=== PATIENT | male | born 2000 | race Caucasian/White ===

== ENCOUNTER 2022-03-11 14:40 | Observation (INO) ==
[2022-03-11 16:37] LABS: Basophils # (auto) 0.03 K/uL (0-0.2); Basophils % (auto) 0.2 %; Eosinophils # (auto) 0.05 K/uL (0-0.50); Eosinophils % (auto) 0.4 %; Hemoglobin 14.4 g/dl (14.0-18.0); Immature Granulocytes # (auto) 0.05 K/uL (0.00-0.02); Immature Granulocytes % (auto) 0.4 %; Lymphocytes # (auto) 1.01 K/uL (1.2-3.4); Lymphocytes % (auto) 7.4 %; Mean Corpuscular Hemoglobin 29.7 pg (25.0-34.0); Mean Corpuscular Hgb Conc 35.1 g/dL (32.0-36.0); Mean Corpuscular Volume 84.5 fL (80.0-100.0); Mean Platelet Volume 10.1 fL (9.4-12.4); Monocytes % (auto) 8.8 %; Neutrophils # (auto) 11.22 K/uL (1.4-6.5); Neutrophils % (auto) 82.8 %; Platelet Count 205 K/uL (130-400); RDW Coefficient of Variation 12.4 % (11.5-14.5); Red Blood Count 4.85 M/uL (4.63-6.08); White Blood Count 13.56 K/ul (4.8-10.8)
[2022-03-11 16:44] LABS: Appearance Urine Clear (Clear); Bacteria Urine Automated Negative (Negative); Bilirubin Urine Negative (Negative); Blood Urine Trace (Negative); Cast Urine Automated 0 /lpf (0-5); Color Urine Yellow; Epithelial Cell Urine Auto 0-5 /lpf (0-5); Glucose Urine UA Negative (Negative); Ketones Urine Negative (Negative); Leukocyte Esterase Urine Negative (Negative); Nitrite Urine Negative (Negative); Protein Urine Negative (Negative); RBC Urine Automated 0-4 /hpf (0-4); Specific Gravity Urine 1.011 (1.000-1.030); Urobilinogen Urine Negative (Negative); WBC Urine Automated 0 /hpf (0-5)
[2022-03-11 17:03] LABS: Albumin Globulin Ratio 1.7 (0.9-2); BUN Creatinine Ratio 10.2 (10-20); Bilirubin,Total 0.9 mg/dl (0.2-1.0); Calcium 10.4 mg/dl (8.5-10.1); Creatinine Clr Calc Pharmacy 93.7 ml/min; Est GFR (African American) 128.1 ml/min; Est GFR (Non-African American) 110.5 ml/min; Globulin 2.9 gm/dl (2.5-4.0); Potassium 3.8 mmol/L (3.5-5.1); Total Protein 7.9 gm/dl (6.0-8.3)
[2022-03-11] MEDS ORDERED: SODIUM CHLORIDE 0.9% 1000ML 1,000 ML IV ONE (19:03)
--- NOTE | 2022-03-11 19:05 | Emergency Department Note ---
Impression & Plan Acute appendicitis, Right lower quadrant abdominal pain ED Provider Note INFORMANT: Patient ED PROVIDER(S): David Buckner MD CHIEF COMPLAINT: Abdominal pain PLAN: Disposition: Admitted Condition: Good Outpatient prescription management: none Referral: None MEDICAL DECISION MAKING: Patient presented because of right lower quadrant abdominal pain. He declined analgesia. Patient was hydrated. Patient underwent CT imaging as he had a leukocytosis on CBC. Chemistry panel was unremarkable. CT imaging was concerning for acute appendicitis. Patient was given IV Mefoxin. Consultation was made with Dr. Foley of general surgery. Patient was admitted to the operative suite for intervention regarding his acute appendicitis. Triage Nursing notes reviewed and agree them. Vital Signs: reviewed and remarkable for no significant abnormalities Differential diagnosis: Appendicitis, testicular torsion, infections, diverticulitis, UTI, obstruction, mesenteric ischemia, aortic pathology, inflammatory bowel disease, renal colic, PUD, pancreatitis, biliary pathology, hernia, volvulus, constipation, as well as other pathologies. Diagnostics interpreted by me: ECG: none Cardiac Monitoring: none Imaging studies: CT scan as noted below HPI: The patient is a 21 year old male who presents to the Emergency Room with complaints of RLQ abd pain. This started last night and is worsening. The patient also notes the following associated symptoms, nausea, poor appetite. Worse with movement. The patient has found no relieving factors. Current pain is rated as 6/10. Pt denies LOC, headache, fevers, chills, diaphoresis, visual changes, neck pain, chest pain, breathing difficulties, back pain, melena, hematochezia, urinary symptoms, numbness, weakness, lymphadenopathy, rash, or other complaints. ROS: See above HPI for pertinent positives & negatives. A total of 10 systems reviewed and were otherwise negative. PAST MEDICAL HISTORY:See Below , [facility] PAST SURGICAL HISTORY:See Below,[facility] FAMILY HISTORY:See Below SOCIAL HISTORY:See Below, [employer] student HOME MEDICATIONS:See Below ALLERGIES:See Below VITALS:See Below PHYSICAL EXAMINATION: GENERAL: Awake, alert, uncomfortable-appearing, in no distress HENT: Normocephalic, atraumatic. Oropharynx unremarkable. EYES: Normal conjunctiva. Sclera non-icteric. NECK: Inspection normal. Non-tender. Supple. No nuchal rigidity. FROM. No masses. RESPIRATORY: Clear to auscultation. No wheezes. No rales. Normal respiratory effort. CARDIAC: Tachy rate. Normal rhythm. No murmurs. No rubs. Extremities warm and well perfused. Pulses equal. No JVD. GI: Soft, non-distended. RLQ tenderness to palpation. Mild rebound and guarding. No masses. RECTAL: Deferred. MUSCULOSKELETAL: Atraumatic. Chest examination reveals no tenderness. The back is symmetrical on inspection without obvious abnormality. There is no CVA tenderness to palpation. No joint edema. LOWER EXTREMITIES: Calves are equal size bilaterally and non-tender. No edema. No discoloration. NEURO: Normal sensorium. No sensory or motor deficits noted. SKIN: No rash or jaundice noted. David Buckner MD Past Med/Surg History Medical History No significant past medical history Social History Smoking Status: Never smoker Hx Alcohol Use: Yes Alcohol type: beer Hx Substance Use: No Preferred Language: Yi Communication Ability: Effective Cartridge Feeder Required: No Current Living Situation: Other Current Living Situation Comment: Patient reports living in a house with other [employer] students Other Information That Helps Us Care for You: No Feels Safe at Home: Yes Safety Concerns: Feels Safe At This Time Assistive Devices: None Allergies Allergies Allergy/AdvReac Type Severity Reaction Status Date / Time No Known Allergies Allergy Verified 03/11/22 20:43 Home Meds Home Medications Medication Instructions Recorded Confirmed ibuprofen 200 mg tablet (Advil) 400 mg PO Q6H PRN Pain 09/27/20 03/11/22 Results & Data (ED) Vital Signs Vital Signs - 24 hr 03/11/22 15:08 03/11/22 19:13 03/11/22 20:41 Temperature 37.3 C Temperature Source Oral Pulse Rate 102 H 98 H Pulse Rate [Right Finger] 68 Pulse Rhythm Regular Pulse Strength Normal Respiratory Rate 20 16 19 Respiratory Effort / Characteristics Non-Labored Spontaneous Respiratory Depth Normal Respiratory Pattern Regular Blood Pressure 115/67 147/76 H Blood Pressure [Right Arm] 148/79 H Blood Pressure Mean 83 Blood Pressure Mean [Right Arm] 102 Blood Pressure Position Sitting Pulse Oximetry 96 98 99 Oxygen Delivery Method Room Air Room Air Room Air Sepsis Recent Fever Within 48 Hours No Sepsis New/Unexplained Change in Mental Status N/A Sepsis Action Taken by Nursing No Action Required Laboratory Data Result diagrams: 03/11/22 16:20 03/11/22 16:20 Lab Results 03/11/22 03/11/22 03/11/22 Range/Units 16:20 16:20 16:25 WBC 13.56 H (4.8-10.8) K/ul RBC 4.85 (4.63-6.08) M/uL Hgb 14.4 (14.0-18.0) g/dl Hct 41.0 (40.1-51.0) % MCV 84.5 (80.0-100.0) fL MCH 29.7 (25.0-34.0) pg MCHC 35.1 (32.0-36.0) g/dL RDW Std Deviation 38.0 (36.4-46.3) fL RDW Coeff of Belkys 12.4 (11.5-14.5) % Plt Count 205 (130-400) K/uL MPV 10.1 (9.4-12.4) fL Immature Gran % (Auto) 0.4 % Neut % (Auto) 82.8 % Lymph % (Auto) 7.4 % [place] % (Auto) 8.8 % Eos % (Auto) 0.4 % Baso % (Auto) 0.2 % Neut # (Auto) 11.22 H (1.4-6.5) K/uL Lymph # (Auto) 1.01 L (1.2-3.4) K/uL [place] # (Auto) 1.20 H (0.24-0.82) K/uL Eos # (Auto) 0.05 (0-0.50) K/uL Baso # (Auto) 0.03 (0-0.2) K/uL Immature Gran # (Auto) 0.05 H (0.00-0.02) K/uL Sodium 136 (136-145) mmol/L Potassium 3.8 (3.5-5.1) mmol/L Chloride 98 (98-107) mmol/L Carbon Dioxide 31 (21-32) mmol/L Anion Gap 7 (3-11) BUN 10 (6-23) mg/dl Creatinine 0.98 (0.6-1.4) mg/dl Est Cr Clr Drug Dosing 93.7 ml/min Est GFR ( Amer) 128.1 ml/min Est GFR (Non-Af Amer) 110.5 ml/min BUN/Creatinine Ratio 10.2 (10-20) Glucose 126 H (70-99(Fasting)) mg/dl Calcium 10.4 H (8.5-10.1) mg/dl Total Bilirubin 0.9 (0.2-1.0) mg/dl AST 18 (13-39) U/L ALT 11 (7-52) U/L Alkaline Phosphatase 73 (34-104) U/L Total Protein 7.9 (6.0-8.3) gm/dl Albumin 5.0 (3.4-5.0) gm/dl Globulin 2.9 (2.5-4.0) gm/dl Albumin/Globulin Ratio 1.7 (0.9-2) Lipase 13 (11-82) U/L Urine Color Yellow Urine Appearance Clear (Clear) Urine pH 7.0 (4.5-7.5) Ur Specific [place] 1.011 (1.000-1.030) Urine Protein Negative (Negative) Urine Glucose (UA) Negative (Negative) Urine Ketones Negative (Negative) Urine Blood Trace H (Negative) Urine Nitrite Negative (Negative) Urine Bilirubin Negative (Negative) Urine Urobilinogen Negative (Negative) Ur Leukocyte Esterase Negative (Negative) Urine WBC (Auto) 0 (0-5) /hpf Urine RBC (Auto) 0-4 (0-4) /hpf U Hyaline Cast (Auto) 0 (0-5) /lpf U Epithel Cells (Auto) 0-5 (0-5) /lpf Urine Bacteria (Auto) Negative (Negative) SARS-CoV-2 (PCR) (Negative) 03/11/22 Range/Units 19:08 WBC (4.8-10.8) K/ul RBC (4.63-6.08) M/uL Hgb (14.0-18.0) g/dl Hct (40.1-51.0) % MCV (80.0-100.0) fL MCH (25.0-34.0) pg MCHC (32.0-36.0) g/dL RDW Std Deviation (36.4-46.3) fL RDW Coeff of Belkys (11.5-14.5) % Plt Count (130-400) K/uL MPV (9.4-12.4) fL Immature Gran % (Auto) % Neut % (Auto) % Lymph % (Auto) % [place] % (Auto) % Eos % (Auto) % Baso % (Auto) % Neut # (Auto) (1.4-6.5) K/uL Lymph # (Auto) (1.2-3.4) K/uL [place] # (Auto) (0.24-0.82) K/uL Eos # (Auto) (0-0.50) K/uL Baso # (Auto) (0-0.2) K/uL Immature Gran # (Auto) (0.00-0.02) K/uL Sodium (136-145) mmol/L Potassium (3.5-5.1) mmol/L Chloride (98-107) mmol/L Carbon Dioxide (21-32) mmol/L Anion Gap (3-11) BUN (6-23) mg/dl Creatinine (0.6-1.4) mg/dl Est Cr Clr Drug Dosing ml/min Est GFR ( Amer) ml/min Est GFR (Non-Af Amer) ml/min BUN/Creatinine Ratio (10-20) Glucose (70-99(Fasting)) mg/dl Calcium (8.5-10.1) mg/dl Total Bilirubin (0.2-1.0) mg/dl AST (13-39) U/L ALT (7-52) U/L Alkaline Phosphatase (34-104) U/L Total Protein (6.0-8.3) gm/dl Albumin (3.4-5.0) gm/dl Globulin (2.5-4.0) gm/dl Albumin/Globulin Ratio (0.9-2) Lipase (11-82) U/L Urine Color Urine Appearance (Clear) Urine pH (4.5-7.5) Ur Specific [place] (1.000-1.030) Urine Protein (Negative) Urine Glucose (UA) (Negative) Urine Ketones (Negative) Urine Blood (Negative) Urine Nitrite (Negative) Urine Bilirubin (Negative) Urine Urobilinogen (Negative) Ur Leukocyte Esterase (Negative) Urine WBC (Auto) (0-5) /hpf Urine RBC (Auto) (0-4) /hpf U Hyaline Cast (Auto) (0-5) /lpf U Epithel Cells (Auto) (0-5) /lpf Urine Bacteria (Auto) (Negative) SARS-CoV-2 (PCR) NEGATIVE (Negative) Administered Medications Acetaminophen (Acetaminophen 325 Mg Tab) 650 mg PO Q6H PRN PRN Reason: Pain & Pre PT Stop: 04/11/22 00:11 Last Admin: 03/12/22 00:46 Dose: 650 mg Documented By: SERGIO Cefoxitin Sodium 1,000 mg/ (Dextrose) 60 mls @ 100 mls/hr IV Q6H CRUZITO Stop: 03/22/22 03:59 Last Infusion: 03/12/22 03:45 Dose: 0 mls/hr Documented By: Admin: 03/12/22 03:00 Dose: 100 mls/hr Documented By: SERGIO Lactated Ringer's (Lr) 1,000 mls @ 100 mls/hr IV .Q10H CRUZITO Stop: 04/11/22 00:11 Last Admin: 03/12/22 00:48 Dose: 100 mls/hr Documented By: SERGIO Ketorolac Tromethamine (Ketorolac Tromethamine 15 Mg/Ml Vial) 15 mg IV Q6H PRN PRN Reason: Pain Stop: 03/17/22 02:44 Last Admin: 03/12/22 02:59 Dose: 15 mg Documented By: SERGIO Metoclopramide HCl (Metoclopramide Hcl Inj 5 Mg/Ml 2 Ml Vial) 10 mg IV Q6H PRN PRN Reason: Nausea Stop: 04/11/22 02:44 Last Admin: 03/12/22 03:00 Dose: 10 mg Documented By: SERGIO Ondansetron HCl (Ondansetron Inj 2 Mg/Ml 2 Ml Vial) 4 mg IV Q4H PRN PRN Reason: Nausea And Vomiting Stop: 04/11/22 00:11 Last Admin: 03/12/22 00:51 Dose: 4 mg Documented By: SERGIO Discontinued Medications Bupivacaine HCl (Bupivacaine 0.5 % 5 Mg/1 Ml Mpf 30ml Vial) Confirm Administered Dose 30 ml .ROUTE .STK-MED ONE Stop: 03/11/22 20:48 Last Admin: 03/11/22 22:00 Dose: 20 ml Documented By: CHRISTEN Sodium Chloride (Nss 1000ml) 1,000 mls @ 999 mls/hr IV .Q1H1M ONE Stop: 03/11/22 20:03 Last Infusion: 03/11/22 20:17 Dose: 0 mls/hr Documented By: Admin: 03/11/22 19:14 Dose: 999 mls/hr Documented By: LENKA Cefoxitin Sodium (Mefoxin) 2,000 mg in 60 mls @ 100 mls/hr IV NOW STA Stop: 03/11/22 20:50 Last Infusion: 03/12/22 00:15 Dose: 0 mls/hr Documented By: Admin: 03/11/22 21:30 Dose: 100 mls/hr Documented By: GARLAND Ioversol (Optiray 350 100ml) 87 ml IV ONCE ONE Stop: 03/11/22 19:25 Last Admin: 03/11/22 19:24 Dose: 87 ml Documented By: BRIDGETT Imaging Data Radiologist's Impression: Abdomen/Pelvis CT 03/11/22 15:[address] WITH IV AND ORAL CONTRAST CT DOSE: 257.02 mGy.cm HISTORY: RLQ abd pain. Nausea. Fever. TECHNIQUE: Multiaxial CT images of the abdomen and pelvis were performed following the use of intravenous and oral contrast. A dose lowering technique was utilized adhering to the principles of ALARA. COMPARISON STUDY: None. FINDINGS: The lung bases are clear. The no pneumoperitoneum. No pneumatosis. No fractures within the visualized osseous structures. The liver, gallbladder, pancreas, spleen, adrenal glands, and kidneys are unremarkable. No hydronephrosis. The main portal vein is patent. No retroperitoneal lymphadenopathy. Normal caliber abdominal aorta. The bladder is not well- distended which likely accounts for the apparent bladder wall thickening. No evidence for bowel obstruction. The distal appendix is thickened and there is periappendiceal fat stranding. The appendix measures up to 8 mm in diameter. Therefore, this is consistent with acute appendicitis. There is a 7 mm appendicolith within the mid appendix. No perforation or abscess identified at this time. IMPRESSION: Acute appendicitis with an associated 7 mm appendicolith. No perforation or abscess. ACT 112: Negative or not required by law. Electronically signed by: Diogo Chen M.D. 03/11/2022 7:55 PM Discharge Plan Visit Data Chief Complaint: Abdominal Pain Stated Complaint: ABDOMINAL PAIN ED Provider: David Buckner Discharge Problem: Acute appendicitis, Right lower quadrant abdominal pain Patient Disposition: Admitted As Inpatient Discharge Instructions Interventions: ED Discharge Assessment Last Done: 03/11/22 20:41
[2022-03-11] MEDS ORDERED: OPTIRAY 350 100ml IV ONE (19:24)
--- NOTE | 2022-03-11 19:57 | CT Scan Report ---
ABDOMEN AND PELVIS CT WITH IV AND ORAL CONTRAST CT DOSE: 257.02 mGy.cm HISTORY: RLQ abd pain. Nausea. Fever. TECHNIQUE: Multiaxial CT images of the abdomen and pelvis were performed following the use of intrave nous and oral contrast. A dose lowering technique was utilized adhering to the principles of ALARA. COMPARISON STUDY: None. FINDINGS: The lung bases are clear. The no pneumoperitoneum. No pneumatosis. No fractures within the visualized osseous structures. The liver, gallbladder, pancreas, spleen, adrenal glands, and kidneys are unremarkable. No hydronephrosis. The main portal vein is patent. No retroperitoneal lymphadenopat hy. Normal caliber abdominal aorta. The bladder is not well-distended which likely accounts for the a pparent bladder wall thickening. No evidence for bowel obstruction. The distal appendix is thickened and there is periappendiceal fat stranding. The appendix measures up to 8 mm in diameter. Therefore, this is consistent with acute appendicitis. There is a 7 mm appendicolith within the mid appendix. No perforation or abscess identified at this time. IMPRESSION: Acute appendicitis with an associated 7 mm appendicolith. No perforation or abscess. ACT 112: Negative or not required by law. Electronically signed by: Diogo Chen M.D. 03/11/2022 7:55 PM
[2022-03-11] MEDS ORDERED: cefOXitin 2,000 MG/60 ML BAG IV STA (20:15)
--- NOTE | 2022-03-11 20:23 | History & Physical Report ---
Date of Service March 11, 2022 Assessment & Plan (1) Acute appendicitis: Plan: Discussed laparoscopic appendectomy with risks of bleeding, infection, conversion to open, postop ileus/ abscess, negative appy. Expected overnight hospital stay and 1-2 week recovery period reviewed. Consent signed. History of Present Illness Chief Complaint: abdominal pain Primary Care Provider: [facility] 21 yr old man with recent open RIH repair who presented with right lower quadrant pain which began last evening. Worse with movement. Constant, no similar episodes. Had nausea today and did not eat much. No fevers. Pain is better if he lays still, worse with deep breathing. Allergies Allergy/AdvReac Type Severity Reaction Status Date / Time No Known Allergies Allergy Verified 03/11/22 20:43 Home Medications Medication Instructions Recorded Confirmed Type ibuprofen 200 mg tablet (Advil) 400 mg PO Q6H PRN Pain 09/27/20 03/11/22 History Past Med/Surg History Medical History No significant past medical history Social History Smoking Status: Never smoker Preferred Language: Marshallese Feels Safe at Home: Yes Review of Systems Review of Systems: All systems reviewed & are unremarkable except as noted in HPI & below Physical Exam Constitutional: WD/WN, vitals as above Eyes: PERRL, conjunctivae normal, anicteric sclerae ENMT: external ear and nose normal, oropharynx normal Respiratory: normal respiratory effort, lungs clear to auscultation Cardiovascular: RRR, no murmur, no edema Gastrointestinal (Abdomen): Inspection/Auscultation: abdomen normal to inspection and normal bowel sounds; abdomen not distended Percussion/Palpation: + abdomen tender (right lower quadrant), + guarding and abdomen soft Musculoskeletal: no cyanosis or clubbing, extremities motor strength 5/5 Neurologic: awake; no focal motor deficits Psychiatric: A+Ox3, euthymic affect Results & Data Results & Data ([facility]) Vital Signs (Past 12 Hours) Vital Signs Temp Pulse Pulse Resp BP BP Pulse Ox 03/11/22 19:13 68 16 148/79 H 98 03/11/22 15:08 37.3 C 102 H 20 115/67 96 O2 Del Method 03/11/22 19:13 Room Air 03/11/22 15:08 Room Air Laboratory Results 03/11/22 03/11/22 03/11/22 Range/Units 19:08 16:25 16:20 WBC (4.8-10.8) K/ul RBC (4.63-6.08) M/uL Hgb (14.0-18.0) g/dl Hct (40.1-51.0) % MCV (80.0-100.0) fL MCH (25.0-34.0) pg MCHC (32.0-36.0) g/dL RDW Std Deviation (36.4-46.3) fL RDW Coeff of Belkys (11.5-14.5) % Plt Count (130-400) K/uL MPV (9.4-12.4) fL Immature Gran % (Auto) % Neut % (Auto) % Lymph % (Auto) % [place] % (Auto) % Eos % (Auto) % Baso % (Auto) % Neut # (Auto) (1.4-6.5) K/uL Lymph # (Auto) (1.2-3.4) K/uL [place] # (Auto) (0.24-0.82) K/uL Eos # (Auto) (0-0.50) K/uL Baso # (Auto) (0-0.2) K/uL Immature Gran # (Auto) (0.00-0.02) K/uL Sodium 136 (136-145) mmol/L Potassium 3.8 (3.5-5.1) mmol/L Chloride 98 (98-107) mmol/L Carbon Dioxide 31 (21-32) mmol/L Anion Gap 7 (3-11) BUN 10 (6-23) mg/dl Creatinine 0.98 (0.6-1.4) mg/dl Est Cr Clr Drug Dosing 93.7 ml/min Est GFR ( Amer) 128.1 ml/min Est GFR (Non-Af Amer) 110.5 ml/min BUN/Creatinine Ratio 10.2 (10-20) Glucose 126 H (70-99(Fasting)) mg/dl Calcium 10.4 H (8.5-10.1) mg/dl Total Bilirubin 0.9 (0.2-1.0) mg/dl AST 18 (13-39) U/L ALT 11 (7-52) U/L Alkaline Phosphatase 73 (34-104) U/L Total Protein 7.9 (6.0-8.3) gm/dl Albumin 5.0 (3.4-5.0) gm/dl Globulin 2.9 (2.5-4.0) gm/dl Albumin/Globulin Ratio 1.7 (0.9-2) Lipase 13 (11-82) U/L Urine Color Yellow Urine Appearance Clear (Clear) Urine pH 7.0 (4.5-7.5) Ur Specific [place] 1.011 (1.000-1.030) Urine Protein Negative (Negative) Urine Glucose (UA) Negative (Negative) Urine Ketones Negative (Negative) Urine Blood Trace H (Negative) Urine Nitrite Negative (Negative) Urine Bilirubin Negative (Negative) Urine Urobilinogen Negative (Negative) Ur Leukocyte Esterase Negative (Negative) Urine WBC (Auto) 0 (0-5) /hpf Urine RBC (Auto) 0-4 (0-4) /hpf U Hyaline Cast (Auto) 0 (0-5) /lpf U Epithel Cells (Auto) 0-5 (0-5) /lpf Urine Bacteria (Auto) Negative (Negative) SARS-CoV-2 (PCR) NEGATIVE (Negative) 03/11/22 Range/Units 16:20 WBC 13.56 H (4.8-10.8) K/ul RBC 4.85 (4.63-6.08) M/uL Hgb 14.4 (14.0-18.0) g/dl Hct 41.0 (40.1-51.0) % MCV 84.5 (80.0-100.0) fL MCH 29.7 (25.0-34.0) pg MCHC 35.1 (32.0-36.0) g/dL RDW Std Deviation 38.0 (36.4-46.3) fL RDW Coeff of Belkys 12.4 (11.5-14.5) % Plt Count 205 (130-400) K/uL MPV 10.1 (9.4-12.4) fL Immature Gran % (Auto) 0.4 % Neut % (Auto) 82.8 % Lymph % (Auto) 7.4 % [place] % (Auto) 8.8 % Eos % (Auto) 0.4 % Baso % (Auto) 0.2 % Neut # (Auto) 11.22 H (1.4-6.5) K/uL Lymph # (Auto) 1.01 L (1.2-3.4) K/uL [place] # (Auto) 1.20 H (0.24-0.82) K/uL Eos # (Auto) 0.05 (0-0.50) K/uL Baso # (Auto) 0.03 (0-0.2) K/uL Immature Gran # (Auto) 0.05 H (0.00-0.02) K/uL Sodium (136-145) mmol/L Potassium (3.5-5.1) mmol/L Chloride (98-107) mmol/L Carbon Dioxide (21-32) mmol/L Anion Gap (3-11) BUN (6-23) mg/dl Creatinine (0.6-1.4) mg/dl Est Cr Clr Drug Dosing ml/min Est GFR ( Amer) ml/min Est GFR (Non-Af Amer) ml/min BUN/Creatinine Ratio (10-20) Glucose (70-99(Fasting)) mg/dl Calcium (8.5-10.1) mg/dl Total Bilirubin (0.2-1.0) mg/dl AST (13-39) U/L ALT (7-52) U/L Alkaline Phosphatase (34-104) U/L Total Protein (6.0-8.3) gm/dl Albumin (3.4-5.0) gm/dl Globulin (2.5-4.0) gm/dl Albumin/Globulin Ratio (0.9-2) Lipase (11-82) U/L Urine Color Urine Appearance (Clear) Urine pH (4.5-7.5) Ur Specific [place] (1.000-1.030) Urine Protein (Negative) Urine Glucose (UA) (Negative) Urine Ketones (Negative) Urine Blood (Negative) Urine Nitrite (Negative) Urine Bilirubin (Negative) Urine Urobilinogen (Negative) Ur Leukocyte Esterase (Negative) Urine WBC (Auto) (0-5) /hpf Urine RBC (Auto) (0-4) /hpf U Hyaline Cast (Auto) (0-5) /lpf U Epithel Cells (Auto) (0-5) /lpf Urine Bacteria (Auto) (Negative) SARS-CoV-2 (PCR) (Negative) Diagnostic Findings CT scan reviewed: ABDOMEN AND PELVIS CT WITH IV AND ORAL CONTRAST CT DOSE: 257.02 mGy.cm HISTORY: RLQ abd pain. Nausea. Fever. TECHNIQUE: Multiaxial CT images of the abdomen and pelvis were performed following the use of intravenous and oral contrast. A dose lowering technique was utilized adhering to the principles of ALARA. COMPARISON STUDY: None. FINDINGS: The lung bases are clear. The no pneumoperitoneum. No pneumatosis. No fractures within the visualized osseous structures. The liver, gallbladder, pancreas, spleen, adrenal glands, and kidneys are unremarkable. No hydronephrosis. The main portal vein is patent. No retroperitoneal lymphadenopathy. Normal caliber abdominal aorta. The bladder is not well- distended which likely accounts for the apparent bladder wall thickening. No evidence for bowel obstruction. The distal appendix is thickened and there is periappendiceal fat stranding. The appendix measures up to 8 mm in diameter. Therefore, this is consistent with acute appendicitis. There is a 7 mm appendicolith within the mid appendix. No perforation or abscess identified at this time. IMPRESSION: Acute appendicitis with an associated 7 mm appendicolith. No perforation or abscess. ACT 112: Negative or not required by law. Electronically signed by: Diogo Chen M.D. 03/11/2022 7:55 PM Dictated:03/11/221951
[2022-03-11] MEDS ORDERED: BUPIVACAINE 0.5 % 5 MG/1 ML MPF 30ML VIAL ONE (20:47)
[2022-03-11] MEDS ORDERED: fentaNYL citrate 100 MCG/2 ML VIAL ONE (21:20)
[2022-03-11] MEDS ORDERED: MIDAZOLAM HCL 1 MG/ML 2ML VIAL ONE (21:20)
--- NOTE | 2022-03-11 21:31 | Anesthesiology Consultation ---
Date of Service March 11, 2022 Assessment & Plan Chart Review Chart Review: Acceptable Risk for Surgery Consults Requested none History Surgery Operation Date: 03/11/22 20:30 Proposed Procedures p Laparoscopic Appendectomy - Alka Foley MD Height/Weight Height: 5 ft 9 in Weight: 55.1 kg Allergies Allergy/AdvReac Type Severity Reaction Status Date / Time No Known Allergies Allergy Verified 03/11/22 20:43 Medications Home Medications Medication Instructions Recorded Confirmed Last Taken ibuprofen 200 mg tablet (Advil) 400 mg PO Q6H PRN Pain 09/27/20 03/11/22 09/26/20 400 mg NPO Date Last Intake of Fluids: 03/11/22 Time Last Intake of Fluids: 13:00 Last Intake of Fluids Comment: CT contrast Date Last Intake of Solids: 03/10/22 Time Last Intake of Solids: 21:00 Past Medical History Medical History No significant past medical history Social History Smoking Status: Never smoker Physical Exam Vital Signs Last Vital Signs Temp 37.3 C 03/11/22 15:08 Pulse 98 H 03/11/22 20:41 Resp 19 03/11/22 20:41 BP 147/76 H 03/11/22 20:41 Pulse Ox 99 03/11/22 20:41 O2 Del Method 03/11/22 20:41 Testing Laboratory Results 03/11/22 16:20 03/11/22 16:20 Urine Color Yellow 03/11/22 16:25 Urine Appearance Clear (Clear) 03/11/22 16:25 Urine pH 7.0 (4.5-7.5) 03/11/22 16:25 Ur Specific [place] 1.011 (1.000-1.030) 03/11/22 16:25 Urine Protein Negative (Negative) 03/11/22 16:25 Urine Glucose (UA) Negative (Negative) 03/11/22 16:25 Urine Ketones Negative (Negative) 03/11/22 16:25 Urine Nitrite Negative (Negative) 03/11/22 16:25 Ur Leukocyte Esterase Negative (Negative) 03/11/22 16:25 Urine WBC (Auto) 0 /hpf (0-5) 03/11/22 16:25 Urine RBC (Auto) 0-4 /hpf (0-4) 03/11/22 16:25 U Hyaline Cast (Auto) 0 /lpf (0-5) 03/11/22 16:25 U Epithel Cells (Auto) 0-5 /lpf (0-5) 03/11/22 16:25 Urine Bacteria (Auto) Negative (Negative) 03/11/22 16:25
[2022-03-11] MEDS ORDERED: fentaNYL citrate 100 MCG/2 ML VIAL IV PRN (22:04)
[2022-03-11] MEDS ORDERED: HYDROmorphone INJ 2 MG/ML SYR/VIAL IV PRN (22:04)
[2022-03-11] MEDS ORDERED: PROMETHAZINE HCL 12.5 MG in SODIUM CHLORIDE 0.9% 50 ML IV PRN (22:04)
[2022-03-11] MEDS ORDERED: ONDANSETRON INJ 2 MG/ML 2 ML VIAL IV PRN (22:04)
[2022-03-11] MEDS ORDERED: ePHEDrine sulfate 50 MG/ML AMP IV PRN (22:04)
[2022-03-11] MEDS ORDERED: ATROPINE SULFATE 0.1 MG/ML 10ML SYR IV PRN (22:04)
[2022-03-11] MEDS ORDERED: PROPOFOL IV EMULSION 10 MG/ML 20 ML VIAL IV ONE (22:09)
[2022-03-11] MEDS ORDERED: DEXAMETHASONE SOD INJ 4 MG/ML VIAL ONE (22:09)
[2022-03-11] MEDS ORDERED: ONDANSETRON INJ 2 MG/ML 2 ML VIAL ONE (22:09)
[2022-03-11] MEDS ORDERED: LIDOCAINE 2% MPF LOCAL 5 ML VIAL INFIL ONE (22:09)
[2022-03-11] MEDS ORDERED: GLYCOPYRROLATE 0.2 MG/ML VIAL ONE (22:11)
[2022-03-11] MEDS ORDERED: NEOSTIGMINE METHYLSULFATE 1 MG/ML 10ML VIAL ONE (22:11)
--- NOTE | 2022-03-11 22:35 | Operative Report ---
Post Operative Report Pre & Post Diagnosis Operation Date: 03/11/22 20:30 <No data on this case meets the specified criteria> acute appendicitis I identified the patient and participated in the time-out.: Yes Procedure Operation Date: 03/11/22 20:30 <No data on this case meets the specified criteria> Surgeon Alka Foley MD Sales Representative Adding Machines none Estimated Blood Loss 5 Findings Consistent with Post-Op Diagnosis non perforated appendicitis Specimens appendix Drains none Anesthesia Type General Complications none Disposition Accompanied Patient To Recovery: No Indications 21 yr old man with acute appendicitis. Consented for lap appendectomy. Description of Procedure The patient received mefoxin preoperatively. After the placement of SCD's he had induction of GET. He was positioned with his left arm tucked and in trendelenburg. His abdomen was sterilely prepped and draped. A supraumbilical incision was made and a Veress needle was placed into the peritoneal cavity. This was tested with a saline drop test. Initial pressure was 2 mmHg and this was taken to 15 mmHg. A 12 mm trocar was placed with the camera through the trocar site. The abdomen was entered and inspected. The appendix was noted to be long and skinny and coursing behind the cecum. The tip of the appendix was inflamed. There were no other suppurative changes. 2 additional trochars were then placed. A 5 mm was placed in the left lower quadrant and a 5 mm in the midline pubic area. The appendix was first grasped at the its base on the cecum and divided off of the cecum with a firing of the KAMLA purple load stapler. The appendix was quite large long and its mesentery was taken with sequential firings of the KAMLA monsivais load stapler. Once the appendix was completely free, it was placed in an Endobag and removed through the umbilical incision. The abdomen was irrigated and suctioned clear. There was no evidence of bleeding noted. The pneumoperitoneum was released. The fascia of the abdominal incision was closed with an 0 Vicryl stitch placed anteriorly. The skin of all 3 incisions was closed with running subcuticular 4-0 Vicryl sutures. Steri-Strips and sterile dressings were applied. He was awakened and taken to recovery in stable condition. I attest to the content of the Intraoperative Record and any orders documented therein. Any exceptions are noted below.
--- NOTE | 2022-03-11 23:35 | Anesthesiology Progress Note ---
Date of Service March 11, 2022 Anesthesia Post Procedure Vital Signs Vital Signs: Temp Pulse Pulse Resp BP BP Pulse Ox 03/11/22 23:19 37.4 C 65 17 133/78 94 03/11/22 23:09 38.0 C H 66 15 136/79 96 03/11/22 22:57 37.3 C 60 16 131/85 96 03/11/22 22:46 37.1 C 59 L 16 137/84 97 03/11/22 20:41 98 H 19 147/76 H 99 03/11/22 19:13 68 16 148/79 H 98 03/11/22 15:08 37.3 C 102 H 20 115/67 96 O2 Del Method 03/11/22 23:19 Room Air 03/11/22 23:09 Room Air 03/11/22 22:57 Room Air 03/11/22 22:46 Room Air 03/11/22 20:41 Room Air 03/11/22 19:13 Room Air 03/11/22 15:08 Room Air Pain Intensity Abdomen: Pain Intensity: 2 Transfer of Care Handoff Completed per policy Notes Mental Status: alert / awake / arousable and participated in evaluation Patient Amnestic to Procedure: Yes Nausea / Vomiting: adequately controlled Pain: adequately controlled Airway Patency, RR, SpO2: stable & adequate BP & HR: stable & adequate Hydration State: stable & adequate Anesthetic Complications: no major complications apparent
[2022-03-12] MEDS ORDERED: LACTATED RINGER'S 1,000 ML IV SCH (00:12)
[2022-03-12] MEDS ORDERED: MoRPHine SULFATE 4 MG/ML 1 ML CARP\\VIAL IV PRN (00:12)
[2022-03-12] MEDS ORDERED: ACETAMINOPHEN 325 MG TAB PO PRN (00:12)
[2022-03-12] MEDS ORDERED: HYDROCODONE/ACETAMOPHEN 5/325MG TAB PO PRN ×2 (00:12)
[2022-03-12] MEDS ORDERED: ONDANSETRON INJ 2 MG/ML 2 ML VIAL IV PRN (00:12)
[2022-03-12] MEDS ORDERED: MoRPHine SULFATE 2 MG/ML CARP IV PRN (00:12)
[2022-03-12] MEDS ORDERED: METOCLOPRAMIDE HCL INJ 5 MG/ML 2 ML VIAL IV PRN (02:34)
[2022-03-12] MEDS ORDERED: KETOROLAC TROMETHAMINE 15 MG/ML VIAL IV PRN (02:39)
--- NOTE | 2022-03-12 10:15 | Discharge Summary ---
Date of Service March 12, 2022 Admission HPI Per Admitting Provider 21 yr old man with recent open RIH repair who presented with right lower quadrant pain which began last evening. Worse with movement. Constant, no similar episodes. Had nausea today and did not eat much. No fevers. Pain is better if he lays still, worse with deep breathing. Principal Diagnosis Acute appendicitis Discharge Exam Abdomen: Soft, mild tenderness to palpation diffusely; incisions healing well without erythema or discharge Discharge Data Allergies Allergy/AdvReac Type Severity Reaction Status Date / Time No Known Allergies Allergy Verified 03/11/22 20:43 Consultations 03/11/22 20:30 ED Decision to Admit Stat Procedures Performed Operation Date: 03/11/22 20:30 Actual Procedures p Laparoscopic Appendectomy(Not Applicable) - Alka Foley MD Ordered Studies 03/11/22 15:21 CT abd pelvis oral and IV con Stat Hospital Course (1) Acute appendicitis: Plan Patient was admitted through the emergency department and was taken to the operating room for laparoscopic appendectomy, the details of which are dictated in a separate operative note. Postoperatively he was transferred in stable condition to the PACU and subsequently to the floor. He did have some nausea overnight. By the next morning, he was tolerating regular diet. His pain was controlled with oral pain medication. DVT prophylaxis with SCD boots and Lovenox. Aggressive ambulation and pulmonary toilet. By discharge, he was not requiring any IV pain medications and was discharged home in stable condition. He will follow-up with Dr. Foley in 2 week. Total Time Total Time Spent Total Time Spent (In Minutes): 30 minutes Discharge Plan Discharge Items Patient Disposition: Home - Self-Care Reason For Visit: ACUTE APPENDICITIS Discharge Diagnosis: Acute appendicitis Activity: Per Instructions section Lifting: No more than 25 pounds Sexual Activity: Wait until after follow-up appointment Exercise/Sports: Wait until after follow-up appointment Non-emergency contact: Surgeon Call non-emergency contact if: you have any medication questions, your symptoms worsen, your pain is not controlled, your pain is worsening, your pain is unusual for you and your pain is concerning for you Follow-up/Referrals: PCP,NO [Physician] - Diet: Regular Addtl Attending Provider Instructions: Post-Surgical ~Discharge Instructions Activity Recommendations: - lifting limitation: (20 pounds for 2 weeks), - exercise/sex/sports limit: (nonstrenuous for 2 weeks), - driving or machine use limit: (none for 1 week), - Shower/bathe limit: (may shower beginning tomorrow) Diet: - Resume previous diet SPECIAL CARE INSTRUCTIONS: - May shower in 24 hours. Let water run over area and pat dry. - Leave steri strips on for one week. - Call the surgeon's office with any questions or concerns - - (ex. temperature higher than 101 degrees F, excessive bleeding or pain). MEDICATIONS: - Resume previous medications unless instructed otherwise by your surgeon. - Ibuprofen 600 mg every 6 hours with food - Percocet 1 every 4 hours, as needed for pain FOLLOW UP VISIT: - If not already scheduled, please call the office to schedule a two week follow-up appointment. Office number Pending Studies at Discharge: No Stand-Alone Forms: My [facility] Satiety, Smoking Cessation Medications and DC Order Prescriptions: New oxycodone-acetaminophen [Percocet] 5-325 mg tablet 1 tab PO Q6H PRN (Reason: pain) Qty: 10 0RF Continued ibuprofen [Advil] 200 mg Tablet 400 mg PO Q6H PRN (Reason: Pain) Discharge Orders: Discharge Order (Routine); Ordered 03/12/22 Ordered By: Ant Rivas Admission Data Admit Date/Time: 03/11/22 22:39 Attending Provider: Alka Foley Admit Provider: Alka Foley Primary Care Provider: [facility] Other Providers: Alka Foley
== END 2022-03-12 13:25 | disposition home or self-care (01) ==
LOC: ED 14:40 → OR 20:50 → 3N 20:50
DX: K35.80 Unspecified acute appendicitis